=== PATIENT | male | born 1955 | race Hispanic/Latino ===

== ENCOUNTER 2018-02-03 14:18 | Emergency (ER) | payer MEDICARE ==
[2018-02-03] MEDS ORDERED: MECLIZINE HCL 12.5 MG TAB PO ONE (14:45)
[2018-02-03] MEDS ORDERED: ONDANSETRON HCL 4 MG ORAL DISINTEGRATING TAB PO ONE (14:45)
[2018-02-03] MEDS ORDERED: AMLODIPINE BESYL5 MG PO (14:47)
[2018-02-03] MEDS ORDERED: METFORMIN HCL500 MG PO (14:47)
[2018-02-03] MEDS ORDERED: METOPROLOL TART25 MG PO (14:47)
[2018-02-03] MEDS ORDERED: GLIPIZIDE5 MG PO (14:47)
[2018-02-03] MEDS ORDERED: ATORVASTATIN CA10 MG PO (14:47)
[2018-02-03] MEDS ORDERED: VASOTEC5 MG PO (14:47)
== END 2018-02-03 15:15 | disposition home or self-care (01) ==
LOC: FSED 14:18
DX: R42 Dizziness and giddiness (principal); R11.0 Nausea; H81.13 Benign paroxysmal vertigo, bilateral
CPT/HCPCS: 80048; 93005; 99283

== ENCOUNTER 2023-04-10 21:47 | Emergency (ER) | payer MEDICARE ==
[~2023-04-10] VITALS: Ht 170.2 cm; Wt 72.6 kg
[~2023-04-10 21:47] MED LIST: AMLODIPINE BESYL5 MG PO; ATORVASTATIN CA10 MG PO; GLIPIZIDE5 MG PO; METFORMIN HCL500 MG PO; METOPROLOL TART25 MG PO; VASOTEC5 MG PO
[2023-04-10] MEDS ORDERED: ALBUTEROL/IPRATROPIUM 3 ML NEB ONE (23:26)
[2023-04-10] MEDS ORDERED: ALBUTEROL/IPRATROPIUM 3 ML NEB NEB ONE (23:30)
[2023-04-10 23:59] VITALS: PULSE 86; RESP 18; O2SAT 97
[2023-04-11] MEDS ORDERED: DEXAMETHASONE SOD PHOS INJ 4 MG/ML SDV ONE (00:13)
[2023-04-11] MEDS ORDERED: DEXAMETHASONE SOD PHOS INJ 4 MG/ML SDV IM ONE (00:15)
[2023-04-11] MEDS ORDERED: PROVENTIL HFA6.7 GM INH (00:19)
== END 2023-04-11 00:37 | disposition home or self-care (01) ==
LOC: FSED 22:03
DX: J98.01 Acute bronchospasm (principal); J06.9 Acute upper respiratory infection, unspecified; B97.89 Other viral agents as the cause of diseases classified elsewhere; R07.89 Other chest pain; I10 Essential (primary) hypertension; E78.5 Hyperlipidemia, unspecified; E11.9 Type 2 diabetes mellitus without complications; Z79.84 Long term (current) use of oral hypoglycemic drugs; Z79.899 Other long term (current) drug therapy
CPT/HCPCS: 83518; 87400; 99283; J1100

== ENCOUNTER → 2024-07-29 | Outpatient (REF) | payer MEDICARE ==
[~2024-07-29] MED LIST changes: +GADOBENATE DIMEGLUMINE 1 ML IV ONE; +PROVENTIL HFA6.7 GM INH
== END ==
LOC: MRI 12:58
PROVIDERS: ATTEND Ophthalmology
DX: H53.133 Sudden visual loss, bilateral (principal)
CPT/HCPCS: 70553